=== PATIENT | female | born 1970 | race Caucasian/White ===

== ENCOUNTER 2016-02-14 11:44 | Emergency (ER) | payer OTHER ==
[~2016-02-14] VITALS: Ht 170.2 cm; Wt 52.4 kg
[2016-02-14 11:50] VITALS: BP 147/115; PULSE 112; RESP 17; TEMP 99.3; O2SAT 100
[2016-02-14] MEDS ORDERED: HYDR-3533 PO (12:22)
[2016-02-14] MEDS ORDERED: BACT800T5 PO (12:22)
--- NOTE | 2016-02-14 12:25 | PD ---
HPI Chief Complaint: ENT Complaint Time Seen by Provider: 12:22 Travel History International Travel<30 days: No Contact w/Intl Traveler<30days: No Traveled to known affect area: No History of Present Illness HPI 45-year-old female that presents to the ED for evaluation of right ear lobe infection. Per patient she's had a cyst or mass on the right ear lobe for about 6 months but her boyfriend's mother apparently used needle about 3 days ago to drain some of it and got a lot of pus and blood. Patient alert procedure well and she's been doing okay but she is concerned because the pulse seems to be coming back. Per patient she also has an infection to inside her mouth. Per patient she's been taking [id number] remedies with minimal relief. She denies any IV drug abuse. She denies any other medical problems. She states that she cannot take nonnarcotic pain medications like tramadol and is allergic to amoxicillin. She has not seen anybody for this. Per patient she is from [place]. PFSH Past Medical History Anxiety: Yes Depression: Yes Diminished Hearing: No Immunizations Current: Yes Tetanus Vaccination: > 5 Years Influenza Vaccination: No ?: Not Menopausal: Yes Past Surgical History Surgical History: No Previous Surgery Social History Alcohol Use: No Tobacco Use: Yes (1/2 pk) Substance Use: No (denies) Allergies-Medications (Allergen,Severity, Reaction): Coded Allergies: Amoxicillin (Verified Allergy, Intermediate, HIVES, 02/14/16) Uncoded Allergies: PAIN MEDICINE (Allergy, Intermediate, HIVES, 02/14/16) Reported Meds & Prescriptions Reported Meds & Active Scripts Active Lortab (Hydrocodone-Acetaminophen) 5-325 Mg Tab 1 Tab PO Q6H PRN Bactrim DS (Sulfamethoxazole-Trimethoprim) 800-160 Mg Tab 1 Tab PO BID 10 Days Review of Systems Except as stated in HPI: all other systems reviewed are Neg Physical Exam Narrative GENERAL: SKIN: Warm and dry. HEAD: Atraumatic. Normocephalic. EYES: Pupils equal and round. No scleral icterus. No injection or drainage. ENT: No nasal bleeding or discharge. Mucous membranes pink and moist. No uvula deviation. Tongue is midline. Patient does have what appears to be small purulence on the right upper jaw but no obvious drainage from the mouth itself. Patient does have bad dentition noted. Patient does have purulence coming from the posterior aspect of the right ear lobe with some tenderness to palpation. Purulence is green. Already draining with minimal pressure. Patient does have right-sided lymphadenopathy noted. NECK: Trachea midline. No JVD. CARDIOVASCULAR: Regular rate and rhythm. RESPIRATORY: No accessory muscle use. Clear to auscultation. Breath sounds equal bilaterally. GASTROINTESTINAL: Abdomen soft, non-tender, nondistended. Hepatic and splenic margins not palpable. MUSCULOSKELETAL: Extremities without clubbing, cyanosis, or edema. No obvious deformities. NEUROLOGICAL: Awake and alert. No obvious cranial nerve deficits. Motor grossly within normal limits. Five out of 5 muscle strength in the arms and legs. Normal speech. PSYCHIATRIC: Appropriate mood and affect; insight and judgment normal. Data Data Last Documented VS Vital Signs Date Time Temp Pulse Resp B/P Pulse Ox O2 Delivery O2 Flow Rate FiO2 02/14/16 11:50 99.3 112 17 147/115 100 Orders Acetamin-Hydrocod 325-5 Mg ([place] 5-325 (02/14/16 12:30) Wound Culture And Gram Stain (02/14/16 12:20) [facility] Medical Decision Making Medical Screen Exam Complete: Yes Emergency Medical Condition: Yes Medical Record Reviewed: Yes Differential Diagnosis Otitis media versus otitis externa versus dental infection Narrative Course 45-year-old female that presents to the ED for evaluation of possible infection to the right ear lobe. Patient was properly examined and was found to have signs and symptoms consistent with what appears to be a draining abscess in the right ear lobe. Patient does appear to have a dental abscess as well but this one already appears to have drained. At this time I recommend antibiotics and pain medication. Patient is agreeable with this. Recommend wound care. Follow up with PCP. Culture of the purulence was obtained. See ED worsening symptoms. Warm compresses. Diagnosis Primary Impression: Abscess Patient Instructions: General Instructions, Narcotic given in the ED Additional Instructions: Take medications as prescribed. Follow-up with PCP. See ED for any worsening symptoms. Do not drink or drive while taking pain medication. Apply ice or heat as needed for pain Med/Other Pt SpecificInfo: Prescription(s) given Scripts Hydrocodone-Acetaminophen (Lortab)5-325 Mg Tab1 Tab PO Q6H PRN (PAIN) #10 TAB Prov:Marcelo Hassan MD 02/14/16 Sulfamethoxazole-Trimethoprim (Bactrim DS)800-160 Mg Tab1 Tab PO BID 10 Days Prov:Marcelo Hassan MD 02/14/16 Disposition: 01 DISCHARGE HOME Condition: Sudarshan Song Feb 14, 2016 12:25
[2016-02-14] MEDS ORDERED: ACETAMINOPHEN/HYDROcodone 325 MG/5 MG TAB PO ONE (12:30)
== END 2016-02-14 12:56 | disposition home or self-care (01) ==
LOC: PHEFT 11:44
DX: H60.01 Abscess of right external ear (principal)
CPT/HCPCS: 87070; 87205; 99283